=== PATIENT | female | born 1970 | race Asian ===

== ENCOUNTER 2016-06-04 05:44 | Inpatient (IN) | payer OTHER ==
[~2016-06-04 05:44] MED LIST: ADVIL200 M3 PO; ALBUTEROL0.63 MG/1 INH; IRON325 M3 PO; VITAMIN C1000 M1 PO
[2016-06-05 06:46] LABS: BASO % 0.1 % (0-2); EOS % 0.3 % (0-7); HCT-HEMATOCRIT 27.9 % (34.0-49.0); HGB-HEMOGLOBIN 8.4 gm/dl (12.0-15.5); IMMATURE GRANULOCYTES ABSOLUTE 0.02 tho/cmm (0-0.03); IMMATURE GRANULOCYTES PERCENT 0.2 % (0-0.3); LYMPH % 15.9 % (20-45); LYMPH ABSOLUTE COUNT 1.7 tho/cmm (0.8-4.5); MCH (MEAN CORPUSCULAR HGB) 24.2 pg (28.0-32.0); MCHC MEAN CORPUSCULAR HGB CONC 30.1 % (32.0-36.0); MCV (MEAN CELL VOLUME) 80.4 fl (82.0-96.0); MEAN PLATELET VOLUME 9.8 cmc (9.4-12.4); MONO % 8.7 % (0-12); NEUTROPHIL ABSOLUTE COUNT 8.1 tho/cmm (1.6-8.0); NEUTROPHIL-AUTOMATED 8.1 tho/cmm (1.6-8.0); NEUTROPHILS % 74.8 % (40-80); PLATELET COUNT 251 tho/cmm (150-450); RED BLOOD COUNT 3.47 mil/cmm (4.00-5.20); RED CELL DISTRIBUTION WIDTH 23.4 % (12.4-16.4); WHITE BLOOD COUNT 10.9 tho/cmm (4.0-10.0)
[2016-06-07] MEDS ORDERED: IBUPROFEN800 M1 PO (05:21)
[2016-06-07] MEDS ORDERED: PERCOCET 5-3251 EACH PO (05:22)
[2016-06-07] MEDS ORDERED: COLACE100 M1 PO (05:22)
== END 2016-06-07 11:35 | DRG 743 ==
LOC: SHSA 05:44 → ORW 07:26 → PACU 09:59 → OBGF 11:14
PROVIDERS: ADMIT Obstetrics & Gynecology
PROC: 0UT90ZZ Resection of Uterus, Open Approach (ICD-10-PCS; principal; 2016-06-04)
PROC: 0UTC0ZZ Resection of Cervix, Open Approach (ICD-10-PCS; 2016-06-04)
PROC: 0UT70ZZ Resection of Bilateral Fallopian Tubes, Open Approach (ICD-10-PCS; 2016-06-04)
DX: D25.9 Leiomyoma of uterus, unspecified (principal); D50.9 Iron deficiency anemia, unspecified; N87.9 Dysplasia of cervix uteri, unspecified
CPT/HCPCS: J0690; J1170; J2250; J2405; J3010; J7121